=== PATIENT | female | born 1940 ===

== ENCOUNTER 2016-11-11 08:32 | Observation (INO) | payer MEDICARE, OTHER ==
--- NOTE | 2016-11-11 08:52 | ED PDOC ---
HPI: Altered Mental Status Time Seen by Provider: 11/11/16 08:35 Chief Complaint (Nursing): Altered Mental Status Chief Complaint (Provider): Altered Mental Status History Per: EMS History/Exam Limitations: Clinical Condition Onset/Duration Of Symptoms: Unknown Onset Of Symptoms: Cannot Confirm Onset Current Symptoms Are (Timing): Still Present Description Of Symptoms: Not At Baseline Usual Baseline: Alert Oriented, Ambulatory Exacerbating Factor(s): Unknown Use Of Anticoag/Antiplatlets: Yes Severity: Severe Additional History Per: [facility] Additional Complaint(s): Patient is a 76 year old female brought to ED by EMS for evaluation of altered mental status today. As per EMS patient had a fluctuating blood pressure, last checked at 90/60. Pt apparently complaning of abdominal pain at the PA since yesterday, she was given percocet at the PA. Notes patient is a full code, with minimal history from longterm. PMD: Dr. Davila Daughter: Ayaka Rodriguez. [phone] NIHSS Stroke Scale - Date/Time Evaluation Performed Date Performed: 11/11/16 Time Performed: 09:00 When Was NIHSS Performed: Baseline - How Severe is the Stroke Level of Consciousness: 1=Drowsy LOC to Questions: 2=Neither correct LOC to commands: 2=Neither correct Best Gaze: 2=Forced deviation Visual: 0=No visual loss Facial: 0=Normal Motor Arm - Left: 1=Drift noted before 10 sec Motor Arm - Right: 1=Drift noted before 10 sec Motor Leg - Left: 1=Drift before 5 sec Motor Leg - Right: 1=Drift before 5 sec Limb Ataxia: 0=Absent Sensory: 1=Mild to moderate loss Best Language: 1=Mild to moderate aphasia Dysarthia: 1=Mild to moderate slurring Extinction & Inattention (Neglect): 0=Normal, no object Score: 14 Severity Of Stroke: 5-15 = Moderate Stroke rTPA Inclusion/Exclusion - Refusal of Treatment Patient Refused Treatment: No - Inclusion Criteria for Altepase Patient is 18 years or Older: Yes Clinical DX Ischemic Stroke Cause Neurological Deficit: No Time of Onset Established Less Than 270 Mins Before TX Begin: No Risk/Benefit Discussed With Patient/Family Member Present: No - Exclusion Criteria for Altepase Uncontrolled Hypertension at Time of TX (SBP>185 or DBP>110): No Active Internal Bleeding: No Known Bleeding Diathesis: No Evidence of an Intracranial Hemorrhage: No Evidence Major Acute Infarct w/ Signs Greater Than 1/3 MCA: No Suspicion of Subarachnoid Bleed on PreTX Eval(CT: neg bleed): No - Warning to TPA With Conditions Following Conditions Weighed Against Anticipated Benefit: No Past Medical History Reviewed: Historical Data, Nursing Documentation, Vital Signs Vital Signs: Last Vital Signs Temp 97.7 F 11/11/16 08:35 Pulse 98 H 11/11/16 08:43 Resp 20 11/11/16 08:43 BP 140/76 11/11/16 08:43 Pulse Ox 98 11/11/16 08:43 - Medical History PMH: Anxiety, GERD, HTN, Hyperlipidemia, Hypothyroidism Other PMH: PVD, Carotid artery aneurysm with fistula placement - Surgical History Surgical History: Cholecystectomy - Family History Family History: States: No Known Family Hx - Living Arrangements Living Arrangements: [facility] - Immunization History Hx Tetanus Toxoid Vaccination: No Hx Influenza Vaccination: No Hx Pneumococcal Vaccination: No - Home Medications Home Medications: Ambulatory Orders Medication Instructions Recorded Acetaminophen [Tylenol 325mg tab] 650 mg PO Q4H PRN 11/11/16 Aluminum Hydroxide/Magnesium 30 ml PO Q4 PRN 11/11/16 [Maalox Plus 30 ml] Atorvastatin [Lipitor] 20 mg PO HS 11/11/16 Famotidine [Pepcid] 20 mg PO BID 11/11/16 Heparin [Heparin] 5,000 units SC Q8 11/11/16 Levothyroxine [Synthroid] 50 mcg PO DAILY 11/11/16 Magnesium Hydroxide [Milk Of 30 ml PO DAILY PRN 11/11/16 Magnesia] Metoprolol Tartrate [Lopressor] 25 mg PO Q6 11/11/16 amLODIPine [Norvasc] 10 mg PO DAILY 11/11/16 oxyCODONE [oxyCODONE Immediate 5 mg PO Q3 PRN 11/11/16 Release Tab] - Allergies Allergies/Adverse Reactions: Allergies Allergy/AdvReac Type Severity Reaction Status Date / Time erythromycin base Allergy RASH Verified 11/11/16 08:42 iodine Allergy RASH Verified 11/11/16 08:42 Penicillins Allergy RASH Verified 11/11/16 08:42 tetracycline Allergy RASH Verified 11/11/16 08:42 Review of Systems Review Of Systems: ROS cannot be obtained secondary to pt's inabilty to answer questions. Physical Exam - Reviewed Nursing Documentation Reviewed: Yes Vital Signs Reviewed: Yes - Physical Exam Appears: Positive for: In Acute Distress Head Exam: Positive for: ATRAUMATIC, NORMAL INSPECTION Skin: Positive for: Pallor Eye Exam: Negative for: Normal appearance (Dilated pupils bilaterally ) Neck: Positive for: Normal Cardiovascular/Chest: Positive for: Regular Rate, Rhythm. Negative for: Murmur Respiratory: Positive for: Normal Breath Sounds (O2 via NC in place). Negative for: Respiratory Distress Gastrointestinal/Abdominal: Positive for: Soft, Tenderness (diffuse), Other ( Multiple puncture wounds from likely injections to abdomen ). Negative for: Distended Extremity: Positive for: Other (Exam limited: Multiple helaing area of eccymosis to left groin, pelvis and hip. no focal area of tenderness. no bony deformity. FROM of all 4 extremities. neurovascular intact with 2+ pulses throughout) Neurologic/Psych: Positive for: Alert, Other (Exam limited ) - Laboratory Results Result Diagrams: 11/11/16 16:15 11/11/16 10:52 - ECG ECG: Positive for: Interpreted By Me ECG Rhythm: Positive for: Sinus Rhythm. Negative for: ST/T Changes Interpretation Of Abn EKG: (+) LVH Rate: 91 O2 Sat by Pulse Oximetry: 98 (RA) Pulse Ox Interpretation: Normal - Critical Care Total Time (In Min): 90 Medical Decision Making Medical Decision Making: Time: 844 Initial impression: pt from longterm with abdominal pain and ecchymosis on left hip area Initial plan: Accucheck 254 Blood pressure: 140/76 in ED -- Type and screen -- CT-abdomen/head/hip -- CMP -- CCBC -- PT/PTT -- NSF -- Urine culture -- U/A All paperwork faxed to ED from longterm reviewed including ICU progress note from recent admission on 11/03 Patient had a a DSA with coil embolization of CC fistula by Dr. Marshall New at [facility] in [place] - 5 days ago. Call placed to Dr Jacobs at this time. Time: 1011 CT-head results reviewed PROCEDURE: CT HEAD WITHOUT CONTRAST. HISTORY: Headache COMPARISON: None available. TECHNIQUE: Axial computed tomography images were obtained through the head/brain without intravenous contrast. Radiation dose: Total exam DLP = 953.23 mGy-cm. This CT exam was performed using one or more of the following dose reduction techniques: Automated exposure control, adjustment of the mA and/or kV according to patient size, and/or use of iterative reconstruction technique. FINDINGS: HEMORRHAGE: No intracranial hemorrhage. BRAIN: There are severe chronic microangiopathic changes. There is no mass, mass effect or abnormal extra-axial fluid collection. 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 Status post right ICA aneurysm clipping. Extensive streak artifacts limit evaluation of both middle cranial fossa, worse on the right and brainstem. There are coarse atherosclerotic calcifications in the cavernous carotid arteries. VENTRICLES: There is mild age-related global parenchymal volume loss and proportionate enlargement of the ventricles and cortical sulci. CALVARIUM: The skull base and calvarium are normal. PARANASAL SINUSES: Predominantly clear. MASTOID AIR CELLS: Predominantly clear. OTHER FINDINGS: None. IMPRESSION: 1. No acute intracranial abnormality. 2. 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 3.Severe chronic microangiopathic changes and mild age-related global parenchymal volume loss. Time: 1025 PROCEDURE: CT Abdomen and Pelvis without intravenous contrast HISTORY: possible abdominal pain COMPARISON: None. TECHNIQUE: CT scan of the abdomen and pelvis was performed without administration of oral or intravenous contrast. Coronal and sagittal reformatted images. Radiation dose: Total exam DLP = 1028.06 mGy-cm. This CT exam was performed using one or more of the following dose reduction techniques: Automated exposure control, adjustment of the mA and/or kV according to patient size, and/or use of iterative reconstruction technique. FINDINGS: LOWER THORAX: There is bibasilar atelectasis and small left pleural effusion. LIVER: The liver is normal in size. There is no intrahepatic biliary ductal dilatation. GALLBLADDER AND BILE DUCTS: Not visualized and may be surgically absent. PANCREAS: Mild diffuse atrophy. SPLEEN: Normal in size. ADRENALS: Both adrenal glands are normal without discrete nodule. KIDNEYS AND URETERS: Both kidneys are atrophic. There is a small simple cyst in the right upper pole. No hydronephrosis or nephrolithiasis. The left kidney is displaced anteriorly and medially by the large left retroperitoneal hematoma. VASCULATURE: There atherosclerotic aortoiliac calcifications. No aortic aneurysm. BOWEL: The small bowel loops are normal in caliber. There is large amount of stool in the colon. There is fecalization of small bowel contents consistent with chronic stasis. There is no bowel obstruction. APPENDIX: Normal. PERITONEUM: There is a large acute left retroperitoneal hematoma with an abdominal component measuring 24 x 9 x 9 cm with full hematocrit level. The hematoma displaces the left kidney anteromedially. There is a large acute hematoma in the left iliopsoas muscle extending into the left upper high measuring approximately 6.4 x 18.1 x 5.6 cm. . LYMPH NODES: No pathologic lymphadenopathy. BLADDER: Decompressed. REPRODUCTIVE: The uterus is surgically absent. BONES: There is an age-indeterminate superior endplate compression fracture in the T11 vertebral body. There is diffuse bone demineralization and multilevel degenerative changes. 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 OTHER FINDINGS: There is diffuse hypodensity in the vasculature suggestive of anemia. IMPRESSION: 1. Large acute left retroperitoneal hematoma with hematocrit level. The hematoma displaces the left kidney anteromedially. 2. Large acute hematoma in the left iliopsoas muscle. Critical findings were discussed with Dr. Carina Garcia in the ER on 11/11/2016 at 10:25 a.m. Time: 1046 CT-hip results reviewed PROCEDURE: CT of the Right Hip. HISTORY: possible fall COMPARISON: None available. TECHNIQUE: Contiguous axial images of the right hip were obtained. Coronal and sagittal reformats were generated. This CT exam was performed using one or more of the following dose reduction techniques: Automated exposure control, adjustment of the mA and/or kV according to patient size, and/or use of iterative reconstruction technique. FINDINGS: BONES: There is no acute displaced fracture or bone destruction. There is diffuse bone demineralization. Bone alignment is normal. RIGHT HIP JOINT: No dislocation. There is severe degenerative osteoarthrosis in the right hip joint with near complete loss of superomedial joint space, large osteophytes and large subarticular cystic changes. SOFT TISSUES: The periarticular soft tissues are normal. IMPRESSION: 1. No acute displaced fracture or dislocation. 2. 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 Time: 1050 Daughter at bedside, all results discussed and questions answered. Daughter confirmed that patient is full code. Dr. Best surgery microarray operations vice president paged. Plan: intense IV fluid rescusiation. pt is responding and blood pressure is above 100 systolic. -- Tranfuse blood - ordered 2 packed red blood cell Time: [address] Arguelles who states this is a vascular problem, patient should be seen by vascular surgeon Time: 1059 Vascular surgeon microarray operations vice president at [facility] Dr Puga called Time: 1110 IR paged at this time, still pending a call back from Dr. Jacobs Time: 1115 Dr puga paged Blood pressure at this time is 114/89.Pain is better, but giving pt small amounts of morphine so as not to drop blood pressure too mu ch. Time: 1131 Dr. Marshall Ramos, IR microarray operations vice president contacted and case discussed, Time: 1141 Dr. Ramos, IR, contacted states he needs to better assess the bleed with CT with IV contrast despite elev creatinine levels. Benefits out way the risk at this time. Will access if bleed is arterial otherwise he can not access and stop the bleeding. Daughter states patient is allergic to contrast but has been pre-treated in the past. Patient will be pre-treated with steroid and Benadryl, quiles cath placed by RN at this time. Time: 1245 Radiologist contacted me in ED, states no arterial bleed, notes mixed density blood. Believes bleed happened several days ago. Time: 1255 Case discussed with with updated information- no further interventions on his end needed at this time. Dr. Davila pt primary doctor at [facility] paged Time: 1330 Daughter signed consent for blood transfusion, see attached consent/ understands risks and benefits of blood transfusion. Time: 1400 Dr. Puga paged again Time: 1500 Dr. Puga never returned our paged. Dr. Roa from [facility] contacted at this time [phone] - however when she called back she stated she is only at [place], not [facility] Time: 1540 Case discussed with Angelika, works with Dr. Marshall Jacobs and will speak with him and call us back [phone] Time: [address] Puga who was made aware of patient and has reviewed all the scans/lab work. Requesting patient be transferred to [facility] at this time, to be admitted to ICU. Discussed with Dr. Lassiter ([phone]), covering for Dr. Marshall Jacobs, states procedure was performed last Wednesday11/02/16. Notes he is unsure if bleeding is caused by the procedure but due to the distance between [facility], [facility] is the best option. Time: 1630 Dr. Curry (Wilfredo ) is covering Dr Davila, being paged to inform of ICU admission . He will accept transfer. Dr. Puga states that patient has been accepted to ICU and he spoke with the ICU attending at [facility] [place] Dr. Moseley has been made aware of all the plans surrounding this patient and is aware of the current transfer plan Time: [address] Puga's medical student who reports that there is no bed in the ICU at [facility]. They will call ED as soon as it is available. Patient is accepted by Dr. Puga of vascular surgery, Dr. Torre the internet media planner. pt currently getting second unit of blood. vitals stable. daughter continuously informed of progress and plan on pt clinical status and transfer status. Time: 1700 Patient to be signed out to Dr. Storm pending transfer to [facility] [place] - should be within the next 1-2 hours. DX intraperitoneal bleed Scribe Attestation: Documented by Tamar Gottlieb acting as a scribe for Pat Lim MD MD Scribe Attestation: All medical record entries made by the Scribe were at my direction and personally dictated by me. I have reviewed the chart and agree that the record accurately reflects my personal performance of the history, physical exam, medical decision making, and the department course for this patient. I have also personally directed, reviewed, and agree with the discharge instructions and disposition. Disposition - Clinical Impression Clinical Impression: Intraperitoneal bleeding - Patient ED Disposition Is Patient to be Admitted: No Counseled Patient/Family Regarding: Studies Performed, Diagnosis - Disposition Disposition: Other Institution ([facility]) Disposition Time: 17:00 Condition: CRITICAL
--- NOTE | 2016-11-11 10:13 | CT ---
PROCEDURE: CT HEAD WITHOUT CONTRAST. HISTORY: Headache COMPARISON: None available. TECHNIQUE: Axial computed tomography images were obtained through the head/brain without intravenous contrast. Radiation dose: Total exam DLP = 953.23 mGy-cm. This CT exam was performed using one or more of the following dose reduction techniques: Automated exposure control, adjustment of the mA and/or kV according to patient size, and/or use of iterative reconstruction technique. FINDINGS: HEMORRHAGE: No intracranial hemorrhage. BRAIN: There are severe chronic microangiopathic changes. There is no mass, mass effect or abnormal extra-axial fluid collection. 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 Status post right ICA aneurysm clipping. Extensive streak artifacts limit evaluation of both middle cranial fossa, worse on the right and brainstem. There are coarse atherosclerotic calcifications in the cavernous carotid arteries. VENTRICLES: There is mild age-related global parenchymal volume loss and proportionate enlargement of the ventricles and cortical sulci. CALVARIUM: The skull base and calvarium are normal. PARANASAL SINUSES: Predominantly clear. MASTOID AIR CELLS: Predominantly clear. OTHER FINDINGS: None. IMPRESSION: 1. No acute intracranial abnormality. 2. 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 3.Severe chronic microangiopathic changes and mild age-related global parenchymal volume loss.
[2016-11-11] MEDS ORDERED: Sodium Chloride 0.9% 1,000 ML IV STA ×2 (10:28→14:48)
--- NOTE | 2016-11-11 10:38 | CT ---
PROCEDURE: CT Abdomen and Pelvis without intravenous contrast HISTORY: possible abdominal pain COMPARISON: None. TECHNIQUE: CT scan of the abdomen and pelvis was performed without administration of oral or intravenous contrast. Coronal and sagittal reformatted images. Radiation dose: Total exam DLP = 1028.06 mGy-cm. This CT exam was performed using one or more of the following dose reduction techniques: Automated exposure control, adjustment of the mA and/or kV according to patient size, and/or use of iterative reconstruction technique. FINDINGS: LOWER THORAX: There is bibasilar atelectasis and small left pleural effusion. LIVER: The liver is normal in size. There is no intrahepatic biliary ductal dilatation. GALLBLADDER AND BILE DUCTS: Not visualized and may be surgically absent. PANCREAS: Mild diffuse atrophy. SPLEEN: Normal in size. ADRENALS: Both adrenal glands are normal without discrete nodule. KIDNEYS AND URETERS: Both kidneys are atrophic. There is a small simple cyst in the right upper pole. No hydronephrosis or nephrolithiasis. The left kidney is displaced anteriorly and medially by the large left retroperitoneal hematoma. VASCULATURE: There atherosclerotic aortoiliac calcifications. No aortic aneurysm. BOWEL: The small bowel loops are normal in caliber. There is large amount of stool in the colon. There is fecalization of small bowel contents consistent with chronic stasis. There is no bowel obstruction. APPENDIX: Normal. PERITONEUM: There is a large acute left retroperitoneal hematoma with an abdominal component measuring 24 x 9 x 9 cm with full hematocrit level. The hematoma displaces the left kidney anteromedially. There is a large acute hematoma in the left iliopsoas muscle extending into the left upper high measuring approximately 6.4 x 18.1 x 5.6 cm. . LYMPH NODES: No pathologic lymphadenopathy. BLADDER: Decompressed. REPRODUCTIVE: The uterus is surgically absent. BONES: There is an age-indeterminate superior endplate compression fracture in the T11 vertebral body. There is diffuse bone demineralization and multilevel degenerative changes. 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 OTHER FINDINGS: There is diffuse hypodensity in the vasculature suggestive of anemia. IMPRESSION: 1. Large acute left retroperitoneal hematoma with hematocrit level. The hematoma displaces the left kidney anteromedially. 2. Large acute hematoma in the left iliopsoas muscle. Critical findings were discussed with Dr. Carina Garcia in the ER on 11/11/2016 at 10:25 a.m.
--- NOTE | 2016-11-11 10:48 | CT ---
PROCEDURE: CT of the Right Hip. HISTORY: possible fall COMPARISON: None available. TECHNIQUE: Contiguous axial images of the right hip were obtained. Coronal and sagittal reformats were generated. This CT exam was performed using one or more of the following dose reduction techniques: Automated exposure control, adjustment of the mA and/or kV according to patient size, and/or use of iterative reconstruction technique. FINDINGS: BONES: There is no acute displaced fracture or bone destruction. There is diffuse bone demineralization. Bone alignment is normal. RIGHT HIP JOINT: No dislocation. There is severe degenerative osteoarthrosis in the right hip joint with near complete loss of superomedial joint space, large osteophytes and large subarticular cystic changes. SOFT TISSUES: The periarticular soft tissues are normal. IMPRESSION: 1. No acute displaced fracture or dislocation. 2. 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
[2016-11-11 11:01] LABS: BASO # 0.1 K/uL (0.0-0.2); BASO % 0.4 % (0.0-2.0); EOS % 0.1 % (0.0-4.0); HEMATOCRIT 28.6 % (34.0-47.0); LYMPH # 2.7 K/uL (1.0-4.3); MEAN CELL VOLUME 95.3 fl (81.0-99.0); MEAN CORPUSCULAR HEMOGLOBIN 30.9 pg (27.0-31.0); MEAN CORPUSCULAR HGB CONC 32.4 g/dL (33.0-37.0); MEAN PLATELET VOLUME 9.9 fl (7.2-11.7); MONO # 1.6 K/uL (0.0-0.8); MONO % 8.2 % (0.0-10.0); NEUT # 15.1 K/uL (1.8-7.0); NEUT % 77.3 % (50.0-75.0); RED CELL DISTRIBUTION WIDTH 15.7 % (11.5-14.5); WHITE BLOOD COUNT 19.5 K/uL (4.8-10.8)
--- NOTE | 2016-11-11 11:04 | CT ---
PROCEDURE: CT of the Left Hip. HISTORY: possible fall COMPARISON: None available. TECHNIQUE: Contiguous axial images of the left hip were obtained. Coronal and sagittal reformats were generated. This CT exam was performed using one or more of the following dose reduction techniques: Automated exposure control, adjustment of the mA and/or kV according to patient size, and/or use of iterative reconstruction technique. FINDINGS: BONES: There is no acute displaced fracture or bone destruction. There is diffuse bone demineralization. LEFT HIP JOINT: There is mild degenerative osteoarthrosis in the hip joint. SOFT TISSUES: Incompletely imaged is an acute hematoma in the left hemipelvis. Also noted is a large acute hematoma in the left iliopsoas muscle. The periarticular muscles are normal. There are injection granulomas in the left buttock. IMPRESSION: 1. No acute fracture or dislocation. 2. Large acute hematoma in the left iliopsoas muscle.
[2016-11-11 11:10] LABS: POTASSIUM 3.9 MMOL/L (3.6-5.0)
[2016-11-11 11:12] LABS: BILIRUBIN,TOTAL 1.2 mg/dl (0.2-1.3)
[2016-11-11 11:13] LABS: TOTAL PROTEIN 6.5 G/DL (6.3-8.2)
[2016-11-11 11:27] LABS: PARTIAL THROMBOPLASTIN TIME 62.3 SECONDS (23.3-32.5)
[2016-11-11] MEDS ORDERED: DiphenhydrAMINE 50 mg/ml Inj ONE (11:40)
[2016-11-11] MEDS ORDERED: DiphenhydrAMINE 50 mg/ml Inj IVP STA (11:43)
--- NOTE | 2016-11-11 11:53 | PCM.IRP ---
History of Present Illness - History of Present Illness History of Present Illness: IR called regarding retroperitoneal bleed. Unclear if bleed is from left femoral artery and related to previous procedure. Advise ER attending to obtain a contrast CT to better determine the source of bleeding. If it is arterial, will plan embolization. Objective - Vital Signs/Intake and Output Vital Signs (last 24 hours): Vital Signs - 24 hr 11/11/16 11/11/16 11/11/16 10:58 11:00 11:11 Pulse Rate 75 77 79 Respiratory 19 19 17 Rate Blood Pressure 63/46 L 85/61 L 98/40 L O2 Sat by Pulse 99 99 99 Oximetry 11/11/16 11/11/16 11/11/16 11:20 11:26 11:45 Pulse Rate 80 86 91 H Respiratory 18 21 Rate Blood Pressure 114/59 L 106/57 L O2 Sat by Pulse 100 2 L 98 Oximetry - Medications Medications: Current Medications Sodium Chloride (Sodium Chloride 0.9%) 1,000 mls @ 200 mls/hr IV .Q5H STA Stop: 11/11/16 15:27 Last Admin: 11/11/16 10:51 Dose: 200 mls/hr Tranexamic Acid 1,000 mg/ (Sodium Chloride) 100 mls @ 12.5 mls/hr IVPB ONCE ONE Stop: 11/11/16 19:44
[2016-11-11] MEDS ORDERED: Sodium Chloride 0.9% 50 ML IV ONE (12:38)
[2016-11-11] MEDS ORDERED: Iodixanol 320 MG/ML 100 ML BOTTLE IV ONE (12:38)
--- NOTE | 2016-11-11 14:18 | CT ---
PROCEDURE: CT Abdomen and Pelvis with contrast HISTORY: Intra-abdominal hematoma COMPARISON: None. TECHNIQUE: Contrast dose: 95 cubic centimeters Visipaque 320 Radiation dose: Total exam DLP = 859.91 MGy-cm. This CT exam was performed using one or more of the following dose reduction techniques: Automated exposure control, adjustment of the mA and/or kV according to patient size, and/or use of iterative reconstruction technique. FINDINGS: LOWER THORAX: Trace left effusion. LIVER: Unremarkable. No gross lesion or ductal dilatation. GALLBLADDER AND BILE DUCTS: Cholecystectomy PANCREAS: Slightly atrophic but otherwise unremarkable. SPLEEN: Unremarkable. ADRENALS: Unremarkable. No mass. KIDNEYS AND URETERS: Both kidneys are atrophic. VASCULATURE: There is no evidence of extravasation from any arteries. Mild aorta iliac calcification. BOWEL: Unremarkable. No obstruction. No gross mural thickening. APPENDIX: Normal appendix. PERITONEUM: Large retroperitoneal hematoma with mixed density. This is likely an old nikolas bleeds. There is also hematoma extending into the iliacus muscle. The adjacent external iliac artery and common femoral artery more inferiorly. LYMPH NODES: Unremarkable. No enlarged lymph nodes. BLADDER: Unremarkable. REPRODUCTIVE: Uterus is absent. BONES: Compression deformity T11 as noted on previous CT scan. OTHER FINDINGS: None. IMPRESSION: Large left retroperitoneal hematoma with mixed density suggesting a slightly older bleed. There is also hematoma extending into the left iliacus muscle which may be more acute. There is no arterial source of the bleed.
[2016-11-11 15:07] LABS: RBC URINE 15 /hpf (0-3); URINE BILIRUBIN NEGATIVE (NEGATIVE); URINE BLOOD MODERATE (NEGATIVE); URINE COLOR YELLOW (YELLOW); URINE GLUCOSE (UA) NEG (Normal); URINE KETONE NEGATIVE (NEGATIVE); URINE LEUKOCYTE ESTERASE SMALL Leu/uL (Negative); URINE PROTEIN 100 mg/dL (NEGATIVE); URINE UROBILINOGEN 0.2-1.0 mg/dL (0.2-1.0); WBC URINE 28 /hpf (0-5)
[2016-11-11 16:59] LABS: BASO % 0.2 % (0.0-2.0); EOS % 0.1 % (0.0-4.0); HEMATOCRIT 25.7 % (34.0-47.0); LYMPH # 0.8 K/uL (1.0-4.3); LYMPH % 4.6 % (20.0-40.0); MEAN CELL VOLUME 97.6 fl (81.0-99.0); MEAN CORPUSCULAR HEMOGLOBIN 30.2 pg (27.0-31.0); MEAN CORPUSCULAR HGB CONC 30.9 g/dL (33.0-37.0); MEAN PLATELET VOLUME 8.9 fl (7.2-11.7); MONO % 5.6 % (0.0-10.0); NEUT # 15.7 K/uL (1.8-7.0); NEUT % 89.5 % (50.0-75.0); NRBC % 0.1 % (0.0-0.0); PLATELET COUNT 151 K/uL (130-400); RED CELL DISTRIBUTION WIDTH 15.8 % (11.5-14.5); WHITE BLOOD COUNT 17.5 K/uL (4.8-10.8)
--- NOTE | 2016-11-11 17:02 | ED PDOC ---
- Laboratory Results Result Diagrams: 11/11/16 16:15 11/11/16 10:52 - ECG O2 Sat by Pulse Oximetry: 98 (RA) Medical Decision Making Medical Decision Making: Assumed care from Dr Lim pending bed availability at accepting hospital. No other pending elements of care. Patient is awaiting bed at [facility] [place] [facility]. Disposition as in previous provider note. Disposition - Clinical Impression Clinical Impression: Hemoperitoneum - POA Present On Arrival: None - Disposition Disposition: Other Institution Disposition Time: 17:00 Condition: CRITICAL
[2016-11-11 18:16] LABS: NEUTROPHIL 85 % (42-75); TOTAL CELLS COUNTED 100
[2016-11-11 20:29] VITALS: BP 102/57; RESP 23; TEMP 97.5
[2016-11-12 19:37] VITALS: PULSE 91; O2SAT 98
== END 2016-11-11 20:41 | disposition short-term general hospital (02) ==
LOC: H.ER 08:32 → H.ERHOLD 10:55 → H.EROBSV 11:25
PROVIDERS: ADMIT Emergency Medicine; ATTEND Emergency Medicine
DX: R58 Hemorrhage, not elsewhere classified (principal); E03.9 Hypothyroidism, unspecified; E78.5 Hyperlipidemia, unspecified; I10 Essential (primary) hypertension; K21.9 Gastro-esophageal reflux disease without esophagitis; I73.9 Peripheral vascular disease, unspecified; F41.9 Anxiety disorder, unspecified; Z88.0 Allergy status to penicillin; Z88.1 Allergy status to other antibiotic agents; Z91.041 Radiographic dye allergy status
CPT/HCPCS: 36430; 70450; 73700; 74176; 74177; 80053; 81003; 82948; 85025; 85610; 85730; 86850; 86900; 86920; 87086; 87181; 96361; 96365; 96366; 96375; 96376; 99285; G0378; J1200; J2270; J2930; J7040; P9051; P9059; Q9967